=== PATIENT | male | born 1970 | race Hispanic/Latino ===

== ENCOUNTER 2016-12-20 19:10 | Emergency (ER) | payer BC, MEDICAID | END 2016-12-20 21:00 | disposition home or self-care (01) | LOC: C.ER 19:10 | DX: I73.9 Peripheral vascular disease, unspecified (principal) ==

== ENCOUNTER 2017-11-17 15:21 | Emergency (ER) | payer MEDICAID ==
[2017-11-17 15:22] VITALS: BMI 32.6
[2017-11-17 17:53] LABS: URINE BILIRUBIN NEGATIVE (NEGATIVE); URINE CLARITY Clear (Clear); URINE COLOR Straw (YELLOW); URINE GLUCOSE (UA) NORMAL (Normal); URINE LEUKOCYTE ESTERASE NEG Leu/uL (Negative); URINE PROTEIN NEGATIVE (NEGATIVE); URINE UROBILINOGEN NORMAL mg/dL (0.2-1.0)
[2017-11-17 17:55] LABS: URINE BLOOD TRACE (NEGATIVE)
--- NOTE | 2017-11-17 19:20 | US ---
HISTORY: pain TECHNIQUE: Realtime sonography through the scrotum with color and doppler flow. COMPARISON: None Available. FINDINGS: RIGHT TESTICLE: Measures 4.8 x 1 x 2.0 x 2.7 cm. Normal echotexture and flow. RIGHT EPIDIDYMIS: Epididymal head measures 1.4 x 0.7 x 0.9 cm. Grossly unremarkable appearance with normal flow. LEFT TESTICLE: Measures 4.9 x 1.8 x 2.7 cm. Normal echotexture and flow. LEFT EPIDIDYMIS: Epididymal head measures 1.5 x 1.0 x 1.4 cm. Normal color Doppler blood flow. Two tiny epididymal head cysts are identified with a few mm greatest dimension. HYDROCELE: Minimal left hydrocele. None on the right. VARICOCELE: None. OTHER FINDINGS: None. IMPRESSION: No evidence of testicular torsion, cyst or mass. 2 tiny left epididymal head cysts are identified with the bilateral epididymal heads otherwise nonfocal. Normal color blood flow with no definite pattern to suggest epididymitis at this time. Limited left hydrocele.
--- NOTE | 2017-11-17 20:22 | CT ---
EXAM: CT Abdomen and Pelvis Without Intravenous Contrast CLINICAL HISTORY: 47 years old, male; Pain; Abdominal pain; Flank; Lower TECHNIQUE: Axial computed tomography images of the abdomen and pelvis without intravenous contrast. All CT scans at this facility use one or more dose reduction techniques, viz.: automated exposure control; ma/kV adjustment per patient size (including targeted exams where dose is matched to indication; i.e. head); or iterative reconstruction technique. Coronal and sagittal reformatted images were created and reviewed. COMPARISON: No relevant prior studies available. FINDINGS: Limitations: Lack of intravenous contrast. Lung bases: Few subpleural nodules and/or scarring, up to 0.3 cm. Mediastinum: Small hiatal hernia. ABDOMEN: Liver: Unremarkable. Gallbladder and bile ducts: No calcified stones. No ductal dilation. Pancreas: Unremarkable. No ductal dilation. Spleen: No splenomegaly. Adrenals: No mass. Kidneys and ureters: Few small renal calculi. No hydronephrosis. Stomach and bowel: No definite mural thickening. No obstruction. PELVIS: Appendix: Normal caliber. No inflammation. Bladder: Unremarkable. No stones. Reproductive: Unremarkable as visualized. ABDOMEN and PELVIS: Intraperitoneal space: No significant fluid collection. No free air. Bones/joints: Probable bone islands. No acute fracture. Soft tissues: Tiny umbilical hernia containing fat. Vasculature: Minimal atherosclerotic disease of aorta. No aneurysm. Lymph nodes: No pathologically enlarged lymph nodes. IMPRESSION: 1. Nonobstructing renal calculi. 2. Pulmonary nodules. For low-risk patients, no follow-up is necessary. For high-risk patients (smoking history or other known risk factors) an optional CT at 12 months could be performed. 3. Incidental/non-acute findings are described above.
--- NOTE | 2017-11-17 20:27 | C.PDOC ---
History Of Present Illness 47 year old male presents to the ED for evaluation of left-sided abdominal pain that radiates to his testicles since yesterday. Patient states he lifted a heavy bag yesterday, which initiated the pain. Notes the pain worsens with movement. Denies change in sensation. Patient is in pain management for chronic wrist pain and is an IV drug user. Patient denies fever, chills, back pain, nausea, vomiting, penile discharge, hematuria or rash. Time Seen by Provider: 11/17/17 16:26 Chief Complaint (Nursing): Groin Pain History Per: Patient History/Exam Limitations: no limitations Onset/Duration Of Symptoms: Hrs Current Symptoms Are (Timing): Still Present Quality Of Discomfort: "Pain" Associated Symptoms: denies: Fever, Chills, Nausea, Vomiting, Urinary Symptoms Additional History Per: Patient Past Medical History Reviewed: Historical Data, Nursing Documentation, Vital Signs Vital Signs: Last Vital Signs Temp 98.4 F 11/17/17 20:30 Pulse 80 11/17/17 20:30 Resp 18 11/17/17 20:30 BP 134/65 11/17/17 20:30 Pulse Ox 99 11/18/17 22:29 - Medical History PMH: Anxiety, Arthritis, Back Problems, Seizures Surgical History: No Surg Hx Family History: States: Unknown Family Hx - Social History Hx Alcohol Use: Yes Hx Substance Use: Yes - Immunization History Hx Tetanus Toxoid Vaccination: No Hx Influenza Vaccination: Yes Hx Pneumococcal Vaccination: No Review Of Systems Constitutional: Negative for: Fever, Chills Gastrointestinal: Positive for: Abdominal Pain (left-sided ) Genitourinary: Positive for: Other (testicular pain ) Musculoskeletal: Negative for: Back Pain Physical Exam - Physical Exam Appears: Non-toxic, No Acute Distress Skin: Normal Color, Warm, Dry Head: Atraumatic, Normacephalic Eye(s): bilateral: Normal Inspection, EOMI Nose: Normal Oral Mucosa: Moist Neck: Normal ROM, Supple Chest: Symmetrical, No Deformity, No Tenderness Cardiovascular: Rhythm Regular Respiratory: Normal Breath Sounds, No Rales, No Rhonchi, No Wheezing Gastrointestinal/Abdominal: Soft, Tenderness (to left abdominal wall ), No Guarding, No Rebound, No Hernia (no hernia elicited) Back: No CVA Tenderness, No Vertebral Tenderness Male Genital: Testicular Tenderness (left-sided ), Inguinal Tenderness (left- sided ), 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 [facility] Division of Radiology. [address] [place] [id number]. Tel. no. . . . Patient Name: DAISY SEGOVIA . Pt. Address: [address] [place] [address]. Rec #: [id number]. [place] [address]: Eden Goncalves PA-C. Pt Order Location: [facility] : 1970 Male Age: 47 Order #: [id number]. Reason for exam: pain. . . . . . CT Scan. . . ABD PELVIS W/O PO OR IV CONT Exam Date: 11/17/17. . This imaging exam was performed at [facility]. EXAM: CT Abdomen and Pelvis Without Intravenous Contrast. . CLINICAL HISTORY : 47 years old, male; Pain; Abdominal pain; Flank; Lower. . TECHNIQUE: Axial computed tomography images of the abdomen and pelvis without. intravenous contrast. All CT scans at this facility use one or more dose. reduction techniques, viz.: automated exposure control; ma/kV adjustment per. patient size (including targeted exams where dose is matched to indication;. i.e. head); or iterative reconstruction technique. Coronal and sagittal reformatted images were created and reviewed. . COMPARISON: No relevant prior studies available. . FINDINGS: Limitations: Lack of intravenous contrast. Lung bases: Few subpleural nodules and/or scarring, up to 0.3 cm. Mediastinum: Small hiatal hernia. . ABDOMEN: Liver: Unremarkable. Gallbladder and bile ducts: No calcified stones. No ductal dilation. Pancreas : Unremarkable. No ductal dilation. Spleen: No splenomegaly. Adrenals: No mass. Kidneys and ureters: Few small renal calculi. No hydronephrosis. Stomach and bowel: No definite mural thickening. No obstruction. . PELVIS: Appendix: Normal caliber. No inflammation. Bladder: Unremarkable. No stones. Reproductive: Unremarkable as visualized. . ABDOMEN and PELVIS: Intraperitoneal space: No significant fluid collection. No free air. Bones/ joints: Probable bone islands. No acute fracture. Soft tissues: Tiny umbilical hernia containing fat. Vasculature: Minimal atherosclerotic disease of aorta. No aneurysm. Lymph nodes: No pathologically enlarged lymph nodes. . IMPRESSION: 1. Nonobstructing renal calculi. 2. Pulmonary nodules. For low-risk patients, no follow-up is necessary. For. high-risk patients ( smoking history or other known risk factors) an optional CT. at 12 months could be performed. 3. Incidental/non-acute findings are described above. . Dictated By: Jeremy Lozano MD. Dictated Date/Time: 11/17/172021. Signed By: Jeremy Lozano MD. Date Signed: 11/17/172021. Transcribed By: [employer]. Transcribe Date/Time: 11/17/172021. ACYP02/MT US testicular Other Rad Studies (CT/US): Read By Radiologist, Radiology Report Reviewed CT/US Interpretation: HISTORY: pain. TECHNIQUE: Realtime sonography through the scrotum with color and doppler flow. COMPARISON: None Available. FINDINGS : RIGHT TESTICLE: Measures 4.8 x 1 x 2.0 x 2.7 cm. Normal echotexture and flow. RIGHT EPIDIDYMIS: Epididymal head measures 1.4 x 0.7 x 0.9 cm. Grossly unremarkable appearance with normal flow. LEFT TESTICLE: Measures 4.9 x 1.8 x 2.7 cm. Normal echotexture and flow. LEFT EPIDIDYMIS: Epididymal head measures 1.5 x 1.0 x 1.4 cm. Normal color Doppler blood flow. Two tiny epididymal head cysts are identified with a few mm greatest dimension. HYDROCELE: Minimal left hydrocele. None on the right. VARICOCELE: None. OTHER FINDINGS: None. IMPRESSION: No evidence of testicular torsion, cyst or mass. 2 tiny left epididymal head cysts are identified with the bilateral epididymal heads otherwise nonfocal. Normal color blood flow with no definite pattern to suggest epididymitis at this time. Limited left hydrocele. Progress Note: Bloodwork, UA, Testicular US, CT A/P ordered and reviewed. Motrin PO administered. On re-exam, Patient is resting comfortably, and is in no acute distress. Abdomen soft, nontender. Tolerating PO. PT is requesting discharge. Pt was given copies of CT results, results were explained, and instructed repeat evaluation. Patient was instructed to follow up with PMD in 1- 2 days for further evaluation. Disposition - Disposition Disposition: HOME/ ROUTINE Disposition Time: 20:25 Condition: STABLE Additional Instructions: Follow up with your doctor in 1-2 days, show them your CT scan results for further follow up. Return to ER if symptoms persist or worsen. Instructions: Acute Abdomen (Belly Pain), Adult (DC) Forms: [employer] (Czech) - Clinical Impression Clinical Impression: Abdominal pain, Inguinal strain - PA / PHARMACIST CRITICAL CARE / Resident Statement MD/DO has reviewed & agrees with the documentation as recorded. - Scribe Statement The provider has reviewed the documentation as recorded by the Scribe (Brooke Dickens) All medical record entries made by the Scribe were at my direction and personally dictated by me. I have reviewed the chart and agree that the record accurately reflects my personal performance of the history, physical exam, medical decision making, and the department course for this patient. I have also personally directed, reviewed, and agree with the discharge instructions and disposition.
[2017-11-17 20:31] VITALS: BP 134/65; PULSE 80; RESP 18; TEMP 98.4
[2017-11-17 22:17] VITALS: O2SAT 99
== END 2017-11-17 20:36 | disposition home or self-care (01) ==
LOC: C.ER 15:21
DX: S39.011A Strain of muscle, fascia and tendon of abdomen, initial encounter (principal); X50.0XXA Overexertion from strenuous movement or load, initial encounter; Y92.9 Unspecified place or not applicable; R10.9 Unspecified abdominal pain

== ENCOUNTER 2017-12-17 13:55 | Emergency (ER) | payer MEDICAID ==
[2017-12-17 13:55] VITALS: BMI 32.6
[2017-12-17 14:31] VITALS: BP 128/83; PULSE 87; RESP 10; TEMP 99.3; O2SAT 97
[2017-12-17] MEDS ORDERED: Lidocaine Hydrochloride 5 ML INJ ONE (16:41)
[2017-12-17] MEDS ORDERED: Lidocaine Hydrochloride 10 ML INJ ONE (16:55)
== END 2017-12-17 14:49 | disposition left against medical advice (07) ==
LOC: C.ER 13:55
DX: Z02.89 Encounter for other administrative examinations (principal); L02.91 Cutaneous abscess, unspecified

== ENCOUNTER 2017-12-17 15:18 | Emergency (ER) | payer MEDICAID ==
[2017-12-17 15:19] VITALS: BMI 32.6
[2017-12-17 15:40] VITALS: BP 133/74; PULSE 92; RESP 20; TEMP 98.5; O2SAT 94
[2017-12-17] MEDS ORDERED: Lidocaine 1% Inj (20ml) INFIL ONE (16:32)
[2017-12-17] MEDS ORDERED: Lidocaine Hydrochloride 5 ML INJ ONE (16:56)
--- NOTE | 2017-12-17 19:42 | C.PDOC ---
History Of Present Illness 47 year old male presents to the ED for evaluation of an abscess to his left forearm region. Patient admits to history of IV heroin abuse. Patient notes the area has been decreasing in size. He denies fever, chills, suicidal/homicidal ideation. Chief Complaint (Nursing): Abnormal Skin Integrity History Per: Patient History/Exam Limitations: no limitations Onset/Duration Of Symptoms: Days Current Symptoms Are (Timing): Still Present Location Of Injury: Left: Forearm Additional History Per: Patient Past Medical History Reviewed: Historical Data, Nursing Documentation, Vital Signs Vital Signs: Last Vital Signs Temp 98.5 F 12/17/17 15:38 Pulse 92 H 12/17/17 15:38 Resp 20 12/17/17 15:38 BP 133/74 12/17/17 15:38 Pulse Ox 94 L 12/17/17 20:15 - Medical History PMH: Anxiety, Arthritis, Back Problems, Seizures Surgical History: No Surg Hx Family History: States: Unknown Family Hx - Social History Hx Alcohol Use: Yes Hx Substance Use: Yes - Immunization History Hx Tetanus Toxoid Vaccination: No Hx Influenza Vaccination: Yes Hx Pneumococcal Vaccination: No Review Of Systems Constitutional: Negative for: Fever, Chills Psych: Positive for: Other (abscess to left forearm ) Physical Exam - Physical Exam Appears: Non-toxic, No Acute Distress Skin: Normal Color, Warm, Dry Head: Atraumatic, Normacephalic Eye(s): bilateral: Normal Inspection Oral Mucosa: Moist Neck: Supple Chest: Symmetrical, No Deformity, No Tenderness Cardiovascular: Rhythm Regular, No Murmur Respiratory: Normal Breath Sounds, No Rales, No Rhonchi, No Wheezing Extremity: Normal ROM, Capillary Refill (less than 2 seconds ), Other (slight fluctuance and 1cm diameter abscess to left antecubital area) Pulses: Left Radial: Normal, Right Radial: Normal Neurological/Psych: Oriented x3, Normal Speech, Normal Cognition ED Course And Treatment O2 Sat by Pulse Oximetry: 94 - Incision & Drainage Of Abscess Anesthesia: Lidocaine 1% Prep Used: Sterile Water, Betadine Procedure: Incised W/Scalpel Blade#: (11) Medical Decision Making Medical Decision Making: Impression: 47 year old male with abscess to left forearm Progress: Attempted incision and drainage of abscess. Unable to express purulent discharge. Wound was bandaged with dry, sterile dressing. Patient is resting comfortably, showing no signs of distress, remains afebrile and is stable for discharge. Patient is advised to follow up with clinic within 1-2 days for further evaluation and/or return to the ED if symptoms persist or worsen. Disposition - Disposition Referrals: [facility] [Outside] [facility] [Outside] Disposition: HOME/ ROUTINE Disposition Time: 17:15 Condition: GOOD Additional Instructions: DAISY SEGOVIA, thank you for letting us take care of you today. Your provider was Reed Hansen DO. The emergency medical care you received today was directed at your acute symptoms. If you were prescribed any medication, please fill it and take as directed. It may take several days for your symptoms to resolve. Return to the Emergency Department if your symptoms worsen, do not improve, or if you have any other problems. Please contact your doctor or call one of the physicians/clinics you have been referred to that are listed on the Patient Visit Information form that is included in your discharge packet. Bring any paperwork you were given at discharge with you along with any medications you are taking to your follow up visit. Our treatment cannot replace ongoing medical care by a primary care provider outside of the emergency department. Thank you for allowing the [facility] team to be part of your care today. Follow up with the clinic in 2-3 days for re-evaluation and further management. Prescriptions: Cephalexin [cephalexin] 500 mg PO Q8 #15 cap Sulfamethoxazole/Trimethoprim [Bactrim DS 800 mg-160 mg] 1 tab PO BID #10 tab Instructions: Drug Abuse and Drug Addiction (DC) Forms: [employer] (Turkmen) - Clinical Impression Clinical Impression: Abscess, Opioid abuse - Scribe Statement The provider has reviewed the documentation as recorded by the Scribe (Brooke Dickens) Provider Attestation: All medical record entries made by the Scribe were at my direction and personally dictated by me. I have reviewed the chart and agree that the record accurately reflects my personal performance of the history, physical exam, medical decision making, and the department course for this patient. I have also personally directed, reviewed, and agree with the discharge instructions and disposition.
== END 2017-12-17 17:41 | disposition home or self-care (01) ==
LOC: C.ER 15:18
DX: L02.414 Cutaneous abscess of left upper limb (principal)

== ENCOUNTER 2018-01-05 18:05 | Emergency (ER) | payer MEDICAID ==
[2018-01-05 18:05] VITALS: BMI 32.6
[2018-01-05] MEDS ORDERED: cefTRIAXone IV 1 gm in Dextros 50 ML IVPB ONE (20:04)
[2018-01-05] MEDS ORDERED: Potassium Chloride 20 mEq/15 ml LIQ UD ONE (20:21)
[2018-01-05] MEDS ORDERED: Enoxaparin 40 mg Syringe ONE (21:22)
[2018-01-06] MEDS ORDERED: Iodixanol 320 MG/ML 100 ML BOTTLE IV ONE (00:54)
== END 2018-01-05 18:19 | disposition left against medical advice (07) ==
LOC: C.ER 18:05
DX: Z02.89 Encounter for other administrative examinations (principal); L02.91 Cutaneous abscess, unspecified

== ENCOUNTER 2018-01-05 18:33 | Inpatient (IN) | payer MEDICAID ==
[2018-01-05 18:33] VITALS: BMI 32.6
[2018-01-05] MEDS ORDERED: cefTRIAXone IV 1 gm in Dextros 50 ML IVPB ONE (19:09)
--- NOTE | 2018-01-05 19:09 | C.PDOC ---
History Of Present Illness 47 year old male presents to the ER with a complaint of redness and swelling to the right upper arm. Patient has a Hx of IVDA and notes he injected to the site 2 days ago. Denies fever or chills. Chief Complaint (Nursing): Abnormal Skin Integrity History Per: Patient History/Exam Limitations: no limitations Current Symptoms Are (Timing): Still Present Location Of Injury: Right: Arm, Anterior: Arm Quality Of Symptoms: Painful, Swollen Recent travel outside of the [place]: No Past Medical History Reviewed: Historical Data, Nursing Documentation, Vital Signs Vital Signs: Last Vital Signs Temp 98.1 F 01/05/18 18:51 Pulse 112 H 01/05/18 18:51 Resp 20 01/05/18 18:51 BP 124/87 01/05/18 18:51 Pulse Ox 92 L 01/05/18 19:20 - Medical History PMH: Anxiety, Arthritis, Back Problems, Seizures Family History: States: Unknown Family Hx - Social History Hx Alcohol Use: Yes Hx Substance Use: Yes - Immunization History Hx Tetanus Toxoid Vaccination: No Hx Influenza Vaccination: Yes Hx Pneumococcal Vaccination: No Review Of Systems Constitutional: Negative for: Fever, Chills Cardiovascular: Negative for: Chest Pain, Palpitations Respiratory: Negative for: Cough, Shortness of Breath Musculoskeletal: Positive for: Arm Pain Skin: Positive for: Other (Redness and swelling) Neurological: Negative for: Weakness, Numbness Physical Exam - Physical Exam Appears: Non-toxic, Other (Mild distress) Skin: Warm, Dry Head: Atraumatic, Normacephalic Eye(s): bilateral: Normal Inspection Oral Mucosa: Moist Neck: Normal, Supple Chest: Symmetrical, No Tenderness Cardiovascular: Rhythm Regular Respiratory: Normal Breath Sounds, No Rales, No Rhonchi, No Wheezing Gastrointestinal/Abdominal: Soft, No Tenderness Extremity: Capillary Refill (<2 seconds), Other ([id number] area of redness and congestion to dorsal aspect of right upper arm, tender, hard to touch, nonfluctuant) Pulses: Left Radial: Normal, Right Radial: Normal Neurological/Psych: Oriented x3, Normal Speech, Normal Motor, Normal Sensation ED Course And Treatment - Laboratory Results Result Diagrams: 01/05/18 19:52 01/05/18 19:52 O2 Sat by Pulse Oximetry: 92 (Room air) Progress Note: CT right upper extremity, blood work, urinalysis, and rocephin administered. Disposition Discussed With Dr.: Angel Villeda Doctor Will See Patient In The: Hospital Counseled Patient/Family Regarding: Diagnosis - Disposition Disposition: HOSPITALIZED Disposition Time: 22:07 Condition: STABLE Forms: [employer] (Sami) - POA Present On Arrival: None - Clinical Impression Clinical Impression: Cellulitis of arm, right, Thrombophlebitis arm - Scribe Statement The provider has reviewed the documentation as recorded by the Scribjanneth Castro All medical record entries made by the Gradyibjanneth were at my direction and personally dictated by me. I have reviewed the chart and agree that the record accurately reflects my personal performance of the history, physical exam, medical decision making, and the department course for this patient. I have also personally directed, reviewed, and agree with the discharge instructions and disposition.
--- NOTE | 2018-01-05 19:10 | C.PDOC ---
Chief Complaint (Nursing): Abnormal Skin Integrity Past Medical History Vital Signs: Last Vital Signs Temp 98.1 F 01/05/18 18:51 Pulse 112 H 01/05/18 18:51 Resp 20 01/05/18 18:51 BP 124/87 01/05/18 18:51 Pulse Ox 92 L 01/05/18 18:51 - Medical History PMH: Anxiety, Arthritis, Back Problems, Seizures Family History: States: Unknown Family Hx - Social History Hx Alcohol Use: Yes Hx Substance Use: Yes - Immunization History Hx Tetanus Toxoid Vaccination: No Hx Influenza Vaccination: Yes Hx Pneumococcal Vaccination: No ED Course And Treatment O2 Sat by Pulse Oximetry: 92 Disposition - Disposition
[2018-01-05 19:58] LABS: BASO % 0.3 % (0.0-2.0); EOS % 0.2 % (0.0-4.0); HEMOGLOBIN 15.3 g/dL (12.0-18.0); LYMPH # 1.2 K/uL (1.0-4.3); LYMPH % 12.3 % (20.0-40.0); MEAN CORPUSCULAR HEMOGLOBIN 31.8 pg (27.0-31.0); MEAN CORPUSCULAR HGB CONC 34.6 g/dL (33.0-37.0); MEAN PLATELET VOLUME 7.4 fL (7.2-11.7); MONO # 1.1 K/uL (0.0-0.8); MONO % 11.4 % (0.0-10.0); NEUT # 7.5 K/uL (1.8-7.0); NEUT % 75.8 % (50.0-75.0); NRBC % 0.8 % (0.0-2.0); RBC 4.82 Mil/uL (4.40-5.90); RED CELL DISTRIBUTION WIDTH 13.6 % (11.5-14.5)
[2018-01-05 19:59] LABS: WHITE BLOOD COUNT 9.9 K/uL (4.8-10.8)
[2018-01-05 20:09] LABS: ALBUMIN 4.4 g/dL (3.5-5.0); ALT/SGPT 25 U/L (21-72); AST/SGOT 30 U/L (17-59); BLOOD UREA NITROGEN 21 mg/dL (9-20); CALCIUM 9.5 mg/dl (8.6-10.4); GFR AFRICAN-AMERICAN > 60; GFR NON-AFRICAN AMERICAN > 60
[2018-01-05] MEDS ORDERED: Potassium Chloride 20 mEq/15 ml LIQ UD PO STA (20:11)
[2018-01-05 20:59] LABS: SQUAMOUS EPITHIAL < 1 /hpf (0-5); URINE BILIRUBIN NEGATIVE (NEGATIVE); URINE BLOOD NEGATIVE (NEGATIVE); URINE CLARITY Hazy (Clear); URINE COLOR Amber (YELLOW); URINE GLUCOSE (UA) NORMAL (Normal); URINE LEUKOCYTE ESTERASE NEG Leu/uL (Negative); URINE PROTEIN 1+ mg/dL (NEGATIVE)
[2018-01-05 21:06] LABS: BARBITURATES, UR NEGATIVE (NEGATIVE); PHENCYCLIDINE, UR NEGATIVE (NEGATIVE)
[2018-01-05 21:15] LABS: BENZODIAZEPINES, UR POSITIVE (NEGATIVE); OPIATES, UR POSITIVE (NEGATIVE)
[2018-01-05] MEDS ORDERED: Enoxaparin 40 mg Syringe SC STA (21:18)
[2018-01-05 21:33] LABS: INR 1.2; PROTHROMBIN TIME 13.6 SECONDS (9.7-12.2)
--- NOTE | 2018-01-05 22:15 | CP.PCM.HP ---
<Ivonne Diaz - Last Filed: 01/06/18 02:57> History of Present Illness - History of Present Illness History of Present Illness: Medicine Note for Hospitalist Service CC: right arm pain HPI: This is a 47 year old male with PMHx of IVDA, Tobacco Use Disorder, and Alcohol Use Disorder who presents to the ED with right arm pain x 2 days. Patient is an active, chronic IV heroine user (~18 years), last use was 2 days ago in his right arm, medial aspect of bicep. Patient realized shortly after the area around the injection site became red, warm, painful to touch. He describes the pain is sharp in nature and constant. He denied taking anything for the pain. Reports not moving the right arm, makes the pain less. He was recently seen in the ED 12/17/17 for left arm abscess for which he was discharged with bactrim and cephalexin. He reports he usually shoots up in either arm, using clean needles. Admits to subjective fevers, cough, and shortness of breath; denied chills, chest pain, abdominal pain, n/v/d/c, or urinary symptoms. PMHx: IVDA, Tobacco Use Disorder, and Alcohol Use Disorder PSHx: Right hand and right knee surgery Meds: Oxycontin and Xanax All: As listed in MAR SHx: 5-6 cigarrettes / day x 20 years, drinks eight, 24 oz beers daily, IV heroine 2-3 bags for the past 18 years. work as an iron work, living in . FHx: Father at age of 50 of [place] PMD: None Present on Admission - Present on Admission Any Indicators Present on Admission: No Past Patient History - Infectious Disease Hx of Infectious Diseases: None - Past Social History Smoking Status: Light Smoker < 10 Cigarettes Daily - NEUROLOGICAL Hx Seizures: Yes - HEMATOLOGICAL/ONCOLOGICAL Hx Hepatitis C: Yes - MUSCULOSKELETAL/RHEUMATOLOGICAL Hx Arthritis: Yes - PSYCHIATRIC Hx Anxiety: Yes Hx Substance Use: Yes - SURGICAL HISTORY Hx Surgeries: Yes Hx Amputation: Yes (right hand, reattached) - ANESTHESIA Hx Anesthesia: Yes Hx Anesthesia Reactions: No Hx Malignant Hyperthermia: No Meds Allergies/Adverse Reactions: Allergies Allergy/AdvReac Type Severity Reaction Status Date / Time carbamazepine [From Tegretol] Allergy RASH Verified 12/17/17 15:40 phenytoin sodium Allergy RASH Verified 12/17/17 15:40 [From Dilantin] phenytoin sodium extended Allergy RASH Verified 12/17/17 15:40 [From Dilantin] Physical Exam - Constitutional Appears: No Acute Distress - Head Exam Head Exam: NORMAL INSPECTION, NORMOCEPHALIC - Eye Exam Eye Exam: EOMI, Normal appearance, PERRL. absent: Nystagmus, Scleral icterus Pupil Exam: NORMAL ACCOMODATION - ENT Exam ENT Exam: Mucous Membranes Dry - Respiratory Exam Respiratory Exam: Decreased Breath Sounds, Wheezes (faint) - Cardiovascular Exam Cardiovascular Exam: Tachycardia. absent: Diastolic murmur, Systolic Murmur - GI/Abdominal Exam GI & Abdominal Exam: Normal Bowel Sounds, Soft. absent: Distended, Organomegaly , Tenderness - Extremities Exam Extremities exam: Positive for: normal inspection, pedal pulses present. Negative for: pedal edema, tenderness Additional comments: no track evans noted on bilateral lower extremities. Multiple scars noted on upper extremities, track evans noted bilaterally Right upper extremity, cellulitis noted medial aspect of bicep, no fluctuance noted - Back Exam Back exam: NORMAL INSPECTION - Neurological Exam Neurological exam: Alert, CN II-XII Intact, Oriented x3 - Psychiatric Exam Psychiatric exam: Normal Affect, Normal Mood - Skin Skin Exam: Dry, Intact, Normal Color, Warm Results - Vital Signs Recent Vital Signs: Last Vital Signs Temp 98.1 F 01/05/18 18:51 Pulse 112 H 01/05/18 18:51 Resp 20 01/05/18 18:51 BP 124/87 01/05/18 18:51 Pulse Ox 92 L 01/05/18 22:09 - Labs Result Diagrams: 01/05/18 19:52 01/05/18 19:52 Labs: Laboratory Results - last 24 hr 01/05/18 01/05/18 01/05/18 19:52 19:52 19:58 WBC 9.9 D RBC 4.82 Hgb 15.3 Hct 44.3 MCV 92.0 MCH 31.8 H MCHC 34.6 RDW 13.6 Plt Count 207 MPV 7.4 Neut % (Auto) 75.8 H Lymph % (Auto) 12.3 L Parke % (Auto) 11.4 H Eos % (Auto) 0.2 Baso % (Auto) 0.3 Neut # (Auto) 7.5 H Lymph # (Auto) 1.2 Parke # (Auto) 1.1 H Eos # (Auto) 0.0 Baso # (Auto) 0.0 PT INR APTT D-Dimer, Quantitative Sodium 141 Potassium 3.3 L Chloride 97 L Carbon Dioxide 25 Anion Gap 22 H BUN 21 H Creatinine 1.0 Est GFR ( Amer) > 60 Est GFR (Non-Af Amer) > 60 Random Glucose 139 H Calcium 9.5 Total Bilirubin 0.7 AST 30 ALT 25 Alkaline Phosphatase 108 Total Protein 8.8 H Albumin 4.4 Globulin 4.4 H Albumin/Globulin Ratio 1.0 Urine Color Urine Clarity Urine pH Ur Specific [place] Urine Protein Urine Glucose (UA) Urine Ketones Urine Blood Urine Nitrate Urine Bilirubin Urine Urobilinogen Ur Leukocyte Esterase Urine WBC (Auto) Urine RBC (Auto) Ur Squamous Epith Cells Hyaline Casts Urine Opiates Screen Urine Methadone Screen Ur Barbiturates Screen Phenytoin < 3.0 L Ur Phencyclidine Scrn Ur Amphetamines Screen U Benzodiazepines Scrn U Oth Cocaine Metabols U Cannabinoids Screen Alcohol, Quantitative 16 H 01/05/18 01/05/18 01/05/18 20:47 20:47 21:19 WBC RBC Hgb Hct MCV MCH MCHC RDW Plt Count MPV Neut % (Auto) Lymph % (Auto) [place] % (Auto) Eos % (Auto) Baso % (Auto) Neut # (Auto) Lymph # (Auto) [place]ke # (Auto) Eos # (Auto) Baso # (Auto) PT 13.6 H INR 1.2 APTT 34 D-Dimer, Quantitative 1017 H Sodium Potassium Chloride Carbon Dioxide Anion Gap BUN Creatinine Est GFR ( Amer) Est GFR (Non-Af Amer) Random Glucose Calcium Total Bilirubin AST ALT Alkaline Phosphatase Total Protein Albumin Globulin Albumin/Globulin Ratio Urine Color [place]iana Urine Clarity Hazy Urine pH 5.0 Ur Specific [place] 1.030 Urine Protein 1+ H Urine Glucose (UA) Normal Urine Ketones Negative Urine Blood Negative Urine Nitrate Negative Urine Bilirubin Negative Urine Urobilinogen 4.0 Ur Leukocyte Esterase Neg Urine WBC (Auto) 3 Urine RBC (Auto) 4 H Ur Squamous Epith Cells < 1 Hyaline Casts 6-10 H Urine Opiates Screen Positive H Urine Methadone Screen Positive H Ur Barbiturates Screen Negative Phenytoin Ur Phencyclidine Scrn Negative Ur Amphetamines Screen Positive H U Benzodiazepines Scrn Positive U Oth Cocaine Metabols Positive H U Cannabinoids Screen Negative Alcohol, Quantitative Assessment & Plan - Assessment and Plan (Free Text) Plan: Cellulitis - Localized to medial aspect of Right UE - Not actively draining, no wound culture to be obtained - Afebrile, no leukocytosis, left shift noted - Possible I&D? pending CT read - IVF, vanco, zosyn started 01/06/18, f/u vanco trough - Upper Extremity CT ordered Tachycardia - Admitted to shortness of breath - EKG - Sinus Tachycardia @ low 100s - D- Dimer elevated - CTA ordered Hx IVDA - Cessation encouraged - Monitor for withdrawal symptoms, treat conservatively Tobacco Use Disorder COPD - Cessation encouraged - Duonebs PRN, nicotine patch Alcohol Use Disorder - Cessation encouraged - Aspiration, Seizure, CIWA protocol - Ativan PRN, Mv, Thiamine, and folic acid daily Prophylactic Measures - GI PPX: PPX, Florastor - DVT PPX: SCDs, Hep Q8H DW Dr. Villeda, Ivonne Diaz DO, PGY-2 <Angel Villeda - Last Filed: 01/06/18 06:09> Results - Vital Signs Recent Vital Signs: Last Vital Signs Temp 98.2 F 01/05/18 23:39 Pulse 100 H 01/05/18 23:39 Resp 20 01/05/18 23:39 BP 125/75 01/05/18 23:39 Pulse Ox 95 01/05/18 23:39 - Labs Result Diagrams: 01/05/18 19:52 01/05/18 19:52 Labs: Laboratory Results - last 24 hr 01/05/18 01/05/18 01/05/18 19:52 19:52 19:58 WBC 9.9 D RBC 4.82 Hgb 15.3 Hct 44.3 MCV 92.0 MCH 31.8 H MCHC 34.6 RDW 13.6 Plt Count 207 MPV 7.4 Neut % (Auto) 75.8 H Lymph % (Auto) 12.3 L [place]ke % (Auto) 11.4 H Eos % (Auto) 0.2 Baso % (Auto) 0.3 Neut # (Auto) 7.5 H Lymph # (Auto) 1.2 [place]ke # (Auto) 1.1 H Eos # (Auto) 0.0 Baso # (Auto) 0.0 PT INR APTT D-Dimer, Quantitative Sodium 141 Potassium 3.3 L Chloride 97 L Carbon Dioxide 25 Anion Gap 22 H BUN 21 H Creatinine 1.0 Est GFR ( Amer) > 60 Est GFR (Non-Af Amer) > 60 Random Glucose 139 H Calcium 9.5 Total Bilirubin 0.7 AST 30 ALT 25 Alkaline Phosphatase 108 Total Protein 8.8 H Albumin 4.4 Globulin 4.4 H Albumin/Globulin Ratio 1.0 Urine Color Urine Clarity Urine pH Ur Specific [place] Urine Protein Urine Glucose (UA) Urine Ketones Urine Blood Urine Nitrate Urine Bilirubin Urine Urobilinogen Ur Leukocyte Esterase Urine WBC (Auto) Urine RBC (Auto) Ur Squamous Epith Cells Hyaline Casts Urine Opiates Screen Urine Methadone Screen Ur Barbiturates Screen Phenytoin < 3.0 L Ur Phencyclidine Scrn Ur Amphetamines Screen U Benzodiazepines Scrn U Oth Cocaine Metabols U Cannabinoids Screen Alcohol, Quantitative 16 H 01/05/18 01/05/18 01/05/18 20:47 20:47 21:19 WBC RBC Hgb Hct MCV MCH MCHC RDW Plt Count MPV Neut % (Auto) Lymph % (Auto) [place] % (Auto) Eos % (Auto) Baso % (Auto) Neut # (Auto) Lymph # (Auto) [place] # (Auto) Eos # (Auto) Baso # (Auto) PT 13.6 H INR 1.2 APTT 34 D-Dimer, Quantitative 1017 H Sodium Potassium Chloride Carbon Dioxide Anion Gap BUN Creatinine Est GFR ( Amer) Est GFR (Non-Af Amer) Random Glucose Calcium Total Bilirubin AST ALT Alkaline Phosphatase Total Protein Albumin Globulin Albumin/Globulin Ratio Urine Color [place]iana Urine Clarity Hazy Urine pH 5.0 Ur Specific [place] 1.030 Urine Protein 1+ H Urine Glucose (UA) Normal Urine Ketones Negative Urine Blood Negative Urine Nitrate Negative Urine Bilirubin Negative Urine Urobilinogen 4.0 Ur Leukocyte Esterase Neg Urine WBC (Auto) 3 Urine RBC (Auto) 4 H Ur Squamous Epith Cells < 1 Hyaline Casts 6-10 H Urine Opiates Screen Positive H Urine Methadone Screen Positive H Ur Barbiturates Screen Negative Phenytoin Ur Phencyclidine Scrn Negative Ur Amphetamines Screen Positive H U Benzodiazepines Scrn Positive U Oth Cocaine Metabols Positive H U Cannabinoids Screen Negative Alcohol, Quantitative Assessment & Plan - Date & Time Date: 01/06/18 (I have seen and examined the patient. I agree with the findings and plan of care as documented by Dr. Diaz. Patient with right upper extremity cellulitis. Possible abscess. Consult surgery if I&D necessary. Kareno and Monika for now. Likely secondary to IVDA. Monitor for signs and symptoms of withdrawal. Tachycardia and some SOB. Check CTA. Monitor for acute changes.) Time: 06:08 Attending/Attestation - Attestation I have personally seen and examined this patient.: Yes I have fully participated in the care of the patient.: Yes I have reviewed all pertinent clinical information: Yes
[2018-01-05] MEDS ORDERED: Sodium Chloride 0.9% 1,000 ML IV ONE (23:37)
[2018-01-06 00:23] VITALS: RESP 20
[2018-01-06] MEDS: Sodium Chloride 0.9% 1,000 ML IV SCH ×3 (01:05→12:43)
[2018-01-06] MEDS: Piperacill/Tazo 3.375gm in Dex 3.375 GM/50 ML BAG IVPB SCH ×3 (03:53→16:03)
[2018-01-06] MEDS: Albuterol-Ipratrop 3 mg / 0.5 (3 ml) UD INH SCH ×2 (07:45→13:16)
[2018-01-06 08:22] LABS: BASO % 0.5 % (0.0-2.0); EOS # 0.1 K/uL (0.0-0.7); HEMOGLOBIN 13.4 g/dL (12.0-18.0); LYMPH # 1.4 K/uL (1.0-4.3); LYMPH % 19.8 % (20.0-40.0); MEAN CELL VOLUME 93.3 fL (80.0-94.0); MEAN CORPUSCULAR HEMOGLOBIN 32.3 pg (27.0-31.0); MEAN CORPUSCULAR HGB CONC 34.6 g/dL (33.0-37.0); MEAN PLATELET VOLUME 7.9 fL (7.2-11.7); MONO % 14.3 % (0.0-10.0); NEUT # 4.6 K/uL (1.8-7.0); NEUT % 64.4 % (50.0-75.0); NRBC % 0.2 % (0.0-2.0); RBC 4.14 Mil/uL (4.40-5.90); RED CELL DISTRIBUTION WIDTH 13.5 % (11.5-14.5); WHITE BLOOD COUNT 7.2 K/uL (4.8-10.8)
[2018-01-06] MEDS: Saccharomyces Boulardi 250 mg Cap PO SCH ×3 (08:35→17:08)
[2018-01-06 08:45] LABS: ALB/GLOB RATIO 1.1 (1.0-2.1); ALBUMIN 3.9 g/dL (3.5-5.0); ALT/SGPT 25 U/L (21-72); AST/SGOT 27 U/L (17-59); BLOOD UREA NITROGEN 20 mg/dL (9-20); CALCIUM 8.6 mg/dl (8.6-10.4); GFR AFRICAN-AMERICAN > 60; GFR NON-AFRICAN AMERICAN > 60
--- NOTE | 2018-01-06 09:15 | CP.PCM.PN ---
Subjective - Date & Time of Evaluation Date of Evaluation: 01/06/18 Time of Evaluation: 09:14 Objective - Vital Signs/Intake and Output Vital Signs (last 24 hours): Temp Pulse Resp BP Pulse Ox 97.5 F L 71 20 111/76 97 01/06/18 07:54 01/06/18 07:54 01/06/18 07:54 01/06/18 07:54 01/06/18 07:54 - Medications Medications: Current Medications Acetaminophen (Tylenol 325mg Tab) 650 mg PO Q6 PRN PRN Reason: Pain, Mild (1-3) Last Admin: 01/06/18 08:38 Dose: 650 mg Albuterol/Ipratropium (Duoneb 3 Mg/0.5 Mg (3 Ml) Ud) 3 ml INH RQ6 [facility] Last Admin: 01/06/18 07:45 Dose: Not Given Folic Acid (Folic Acid) 1 mg PO DAILY [facility] Heparin Sodium (Porcine) (Heparin) 5,000 units SC Q8 [facility] Last Admin: 01/06/18 05:35 Dose: 5,000 units Piperacillin Sod/Tazobactam Sod (Zosyn 3.375 Gm Iv Premix) 3.375 gm in 50 mls @ 100 mls/hr IVPB Q6H [facility] PRN Reason: Protocol Last Admin: 01/06/18 03:53 Dose: 100 mls/hr Vancomycin/Sodium Chloride (Vancomycin 1 Gm/Ns 200 Ml) 1 gm in 200 mls @ 133 mls/hr IVPB DAILY [facility] PRN Reason: Protocol Stop: 01/11/18 10:01 Sodium Chloride (Sodium Chloride 0.9%) 1,000 mls @ 100 mls/hr IV .Q10H [facility] Last Admin: 01/06/18 01:05 Dose: 100 mls/hr Lorazepam (Ativan) 1 mg IVP Q6H PRN PRN Reason: Anxiety Multivitamins (Hexavitamin) 1 tab PO DAILY [facility] Nicotine (Nicoderm Cq) 1 patch TD DAILY [facility] Pantoprazole Sodium (Protonix Ec Tab) 40 mg PO DAILY [facility] Saccharomyces Boulardii (Florastor) 250 mg PO BID [facility] Last Admin: 01/06/18 08:35 Dose: 250 mg Thiamine HCl (Vitamin B1 Tab) 100 mg PO DAILY [facility] - Labs Labs: 01/06/18 08:11 01/06/18 08:11 PT 13.6 SECONDS (9.7-12.2) H 01/05/18 21:19 INR 1.2 01/05/18 21:19 APTT 34 SECONDS (21-34) 01/05/18 21:19 Assessment and Plan - Assessment and Plan (Free Text) Plan: 47 yo M admitted for cellulitis Cellulitis - Localized to medial aspect of Right UE - Not actively draining, no wound culture to be obtained - Afebrile, no leukocytosis, left shift noted - Possible I&D? pending CT read - IVF, vanco, zosyn started 01/06/18, f/u vanco trough - Upper Extremity CT ordered Tachycardia - Admitted to shortness of breath - EKG - Sinus Tachycardia @ low 100s - D- Dimer elevated - CTA ordered Hx IVDA - Cessation encouraged - Monitor for withdrawal symptoms, treat conservatively Tobacco Use Disorder COPD - Cessation encouraged - Duonebs PRN, nicotine patch Alcohol Use Disorder - Cessation encouraged - Aspiration, Seizure, CIWA protocol - Ativan PRN, Mv, Thiamine, and folic acid daily Prophylactic Measures - GI PPX: PPX, Florastor - DVT PPX: SCDs, Hep Q8H
--- NOTE | 2018-01-06 09:48 | CT ---
Date of service: 01/05/2018 PROCEDURE: CT right upper extremity HISTORY: cellulitis/ abscess/ IVDA COMPARISON: Not available TECHNIQUE: 2.5 mm contiguous axial sections were acquired through the right upper extremity from the shoulder through the elbow. Sagittal and coronal images were reformatted from the axial scan. FINDINGS: There is infiltration of the subcutaneous soft tissues in the region just proximal to the antecubital fossa, about the cephalic vein. This may represent a thrombophlebitis. There is no defined fluid collection. This may reflect some phlegmonous change. There is mild cutaneous thickening overlying the region of concern. There is edema about the flexor muscles, predominantly biceps. There is no evidence of an intramuscular abscess or mass. There is no underlying osseous erosion or periosteal reaction appreciated. IMPRESSION: No evidence of abscess. Possible thrombophlebitis. Likely cellulitis. The preliminary findings for this examination were reported by [facility] at 8:33 p.m. on 01/05/2018. There is concurrence of this report with the preliminary findings.
[2018-01-06] MEDS ORDERED: Multiple Vitamins Tab PO SCH (10:00)
[2018-01-06] MEDS ORDERED: Pantoprazole 40 mg EC Tab PO SCH (10:00)
[2018-01-06] MEDS ORDERED: Vancomycin 1 gm/NS 200 ml 1 GM/200 ML BAG IVPB SCH (10:00)
--- NOTE | 2018-01-06 10:48 | CT ---
Date of service: 01/06/2018 PROCEDURE: CT Chest with contrast (Pulmonary Angiogram) HISTORY: dyspnea, tachycardia, elevated D-dimer COMPARISON: Correlation made with CT scan abdomen pelvis 11/17/2017 which imaged both lung bases. . TECHNIQUE: Axial computed tomography images were obtained of the chest in the pulmonary arterial phase of enhancement. Coronal and sagittal reformatted images were created and reviewed. Intravenous contrast dose: 100 cc Visipaque 320 Radiation dose: Total exam DLP = mGy-cm. This CT exam was performed using one or more of the following dose reduction techniques: Automated exposure control, adjustment of the mA and/or kV according to patient size, and/or use of iterative reconstruction technique. FINDINGS: PULMONARY ARTERIES: Limited study due to suboptimal opacification of the pulmonary arteries. The visualized pulmonary trunk, right and left main, lobar, segmental, and proximal subsegmental branches of the pulmonary arteries appear patent so far as can be seen. AORTA: No acute findings. No thoracic aortic aneurysm. LUNGS: Mild passive/dependent type atelectasis seen in both posterior lower lung doshi. Otherwise lung doshi are clear without focal consolidation or effusion. There is a small approximately 4.6 mm nodule in the right middle lobe unchanged from prior exam. . Follow-up study in 6 months could be performed to assess stability. PLEURAL SPACES: Unremarkable. No effusion or pneumothorax. HEART: Unremarkable. No cardiomegaly. No significant pericardial effusion. LYMPH NODES: Several small nonspecific mediastinal lymph nodes are present. Few small bilateral hilar lymph nodes are present the largest on the right side measuring approximately 12 point 3 minimal measures long axis. There is a small hiatal hernia with wall thickening of the distal esophagus likely due to protrusion of gastric mucosa however the possibility of esophagitis not excluded. BONES, CHEST WALL: Mild multilevel degenerative spondylosis of the thoracic spine. There are no acute compression fractures nor retropulsed fragments. OTHER FINDINGS: Spleen appears mildly enlarged measuring over 13 cm in AP dimension. IMPRESSION: Limited study due to suboptimal opacification of the pulmonary arteries. No evidence of central pulmonary embolus so far as can be seen. Mild passive atelectasis both posterior lower lung doshi. Small 4.6 mm nodule again noted middle lobe. Follow-up CT scan 6 months could be performed to assess stability. Small hiatal hernia with wall thickening of the distal esophagus likely due to protrusion gastric mucosa. Possibility of esophagitis not excluded. Mild splenomegaly.
[2018-01-06 15:24] VITALS: BP 135/81; PULSE 92; TEMP 97.8; O2SAT 96
--- NOTE | 2018-01-06 19:08 | CP.PCM.CON ---
History of Present Illness - History of Present Illness History of Present Illness: 47M with past medical history of IV drug abuse, consulted for right upper extremity cellulitis with possible abscess formation. Patient left against medical advice before he could be seen and evaluated. Past Patient History - Infectious Disease Hx of Infectious Diseases: None - Past Medical History & Family History Past Medical History?: Yes - Past Social History Smoking Status: Light Smoker < 10 Cigarettes Daily - CARDIAC Hx Cardiac Disorders: No - PULMONARY Hx Respiratory Disorders: No - NEUROLOGICAL Hx Seizures: Yes - HEENT Hx HEENT Problems: No - RENAL Hx Chronic Kidney Disease: No - ENDOCRINE/METABOLIC Hx Endocrine Disorders: No - HEMATOLOGICAL/ONCOLOGICAL Hx Hepatitis C: Yes - INTEGUMENTARY Hx Dermatological Problems: No - MUSCULOSKELETAL/RHEUMATOLOGICAL Hx Arthritis: Yes - GASTROINTESTINAL Hx Gastrointestinal Disorders: No - GENITOURINARY/GYNECOLOGICAL Hx Genitourinary Disorders: No - PSYCHIATRIC Hx Anxiety: Yes Hx Substance Use: Yes - SURGICAL HISTORY Hx Surgeries: Yes Hx Amputation: Yes (right hand, reattached) - ANESTHESIA Hx Anesthesia: Yes Hx Anesthesia Reactions: No Hx Malignant Hyperthermia: No Meds Allergies/Adverse Reactions: Allergies Allergy/AdvReac Type Severity Reaction Status Date / Time carbamazepine [From Tegretol] Allergy RASH Verified 12/17/17 15:40 phenytoin sodium Allergy RASH Verified 12/17/17 15:40 [From Dilantin] phenytoin sodium extended Allergy RASH Verified 12/17/17 15:40 [From Dilantin] Physical Exam - Constitutional Additional comments: No physical exam was obtained because patient left AMA Results - Vital Signs Recent Vital Signs: Last Vital Signs Temp 97.8 F 01/06/18 15:22 Pulse 92 H 01/06/18 15:22 Resp 20 01/06/18 15:22 BP 135/81 01/06/18 15:22 Pulse Ox 96 01/06/18 15:22 - Labs Result Diagrams: 01/06/18 08:11 01/06/18 08:11 Labs: Laboratory Results - last 24 hr 01/05/18 01/05/18 01/05/18 19:52 19:52 19:58 WBC 9.9 D RBC 4.82 Hgb 15.3 Hct 44.3 MCV 92.0 MCH 31.8 H MCHC 34.6 RDW 13.6 Plt Count 207 MPV 7.4 Neut % (Auto) 75.8 H Lymph % (Auto) 12.3 L [place] % (Auto) 11.4 H Eos % (Auto) 0.2 Baso % (Auto) 0.3 Neut # (Auto) 7.5 H Lymph # (Auto) 1.2 [place] # (Auto) 1.1 H Eos # (Auto) 0.0 Baso # (Auto) 0.0 PT INR APTT D-Dimer, Quantitative Sodium 141 Potassium 3.3 L Chloride 97 L Carbon Dioxide 25 Anion Gap 22 H BUN 21 H Creatinine 1.0 Est GFR ( Amer) > 60 Est GFR (Non-Af Amer) > 60 Random Glucose 139 H Calcium 9.5 Phosphorus Magnesium Total Bilirubin 0.7 AST 30 ALT 25 Alkaline Phosphatase 108 Total Protein 8.8 H Albumin 4.4 Globulin 4.4 H Albumin/Globulin Ratio 1.0 Urine Color Urine Clarity Urine pH Ur Specific [place] Urine Protein Urine Glucose (UA) Urine Ketones Urine Blood Urine Nitrate Urine Bilirubin Urine Urobilinogen Ur Leukocyte Esterase Urine WBC (Auto) Urine RBC (Auto) Ur Squamous Epith Cells Hyaline Casts Urine Opiates Screen Urine Methadone Screen Ur Barbiturates Screen Phenytoin < 3.0 L Ur Phencyclidine Scrn Ur Amphetamines Screen U Benzodiazepines Scrn U Oth Cocaine Metabols U Cannabinoids Screen Alcohol, Quantitative 16 H 01/05/1818 01/05/18 20:47 20:47 21:19 WBC RBC Hgb Hct MCV MCH MCHC RDW Plt Count MPV Neut % (Auto) Lymph % (Auto) [place] % (Auto) Eos % (Auto) Baso % (Auto) Neut # (Auto) Lymph # (Auto) [place] # (Auto) Eos # (Auto) Baso # (Auto) PT 13.6 H INR 1.2 APTT 34 D-Dimer, Quantitative 1017 H Sodium Potassium Chloride Carbon Dioxide Anion Gap BUN Creatinine Est GFR ( Amer) Est GFR (Non-Af Amer) Random Glucose Calcium Phosphorus Magnesium Total Bilirubin AST ALT Alkaline Phosphatase Total Protein Albumin Globulin Albumin/Globulin Ratio Urine Color [place] Urine Clarity Hazy Urine pH 5.0 Ur Specific [place] 1.030 Urine Protein 1+ H Urine Glucose (UA) Normal Urine Ketones Negative Urine Blood Negative Urine Nitrate Negative Urine Bilirubin Negative Urine Urobilinogen 4.0 Ur Leukocyte Esterase Neg Urine WBC (Auto) 3 Urine RBC (Auto) 4 H Ur Squamous Epith Cells < 1 Hyaline Casts 6-10 H Urine Opiates Screen Positive H Urine Methadone Screen Positive H Ur Barbiturates Screen Negative Phenytoin Ur Phencyclidine Scrn Negative Ur Amphetamines Screen Positive H U Benzodiazepines Scrn Positive U Oth Cocaine Metabols Positive H U Cannabinoids Screen Negative Alcohol, Quantitative 01/06/18 01/06/18 08:11 08:11 WBC 7.2 RBC 4.14 L Hgb 13.4 Hct 38.6 MCV 93.3 MCH 32.3 H MCHC 34.6 RDW 13.5 Plt Count 194 MPV 7.9 Neut % (Auto) 64.4 Lymph % (Auto) 19.8 L [place] % (Auto) 14.3 H Eos % (Auto) 1.0 Baso % (Auto) 0.5 Neut # (Auto) 4.6 Lymph # (Auto) 1.4 [place] # (Auto) 1.0 H Eos # (Auto) 0.1 Baso # (Auto) 0.0 PT INR APTT D-Dimer, Quantitative Sodium 138 Potassium 4.4 Chloride 98 Carbon Dioxide 29 Anion Gap 16 BUN 20 Creatinine 0.8 Est GFR ( Amer) > 60 Est GFR (Non-Af Amer) > 60 Random Glucose 109 Calcium 8.6 Phosphorus 3.9 Magnesium 2.4 H Total Bilirubin 0.5 AST 27 ALT 25 Alkaline Phosphatase 95 Total Protein 7.4 Albumin 3.9 Globulin 3.5 Albumin/Globulin Ratio 1.1 Urine Color Urine Clarity Urine pH Ur Specific [place] Urine Protein Urine Glucose (UA) Urine Ketones Urine Blood Urine Nitrate Urine Bilirubin Urine Urobilinogen Ur Leukocyte Esterase Urine WBC (Auto) Urine RBC (Auto) Ur Squamous Epith Cells Hyaline Casts Urine Opiates Screen Urine Methadone Screen Ur Barbiturates Screen Phenytoin Ur Phencyclidine Scrn Ur Amphetamines Screen U Benzodiazepines Scrn U Oth Cocaine Metabols U Cannabinoids Screen Alcohol, Quantitative Assessment & Plan - Assessment and Plan (Free Text) Assessment: Unable to obtain significant clinical findings because patient left Against Medical Advice
--- NOTE | 2018-01-07 00:47 | CP.PCM.DIS ---
Provider - Provider Date of Admission: 01/05/18 22:09 Attending physician: Angel Villeda MD Time Spent in preparation of Discharge (in minutes): 0 Hospital Course - Lab Results Lab Results: Micro Results 01/05/18 22:41 Blood Blood Culture - Preliminary NO GROWTH AFTER 24 HOURS 01/05/18 22:41 Blood Blood Culture - Preliminary NO GROWTH AFTER 24 HOURS Most Recent Lab Values WBC 7.2 K/uL (4.8-10.8) 01/06/18 08:11 RBC 4.14 Mil/uL (4.40-5.90) L 01/06/18 08:11 Hgb 13.4 g/dL (12.0-18.0) 01/06/18 08:11 Hct 38.6 % (35.0-51.0) 01/06/18 08:11 MCV 93.3 fL (80.0-94.0) 01/06/18 08:11 MCH 32.3 pg (27.0-31.0) H 01/06/18 08:11 MCHC 34.6 g/dL (33.0-37.0) 01/06/18 08:11 RDW 13.5 % (11.5-14.5) 01/06/18 08:11 Plt Count 194 K/uL (130-400) 01/06/18 08:11 MPV 7.9 fL (7.2-11.7) 01/06/18 08:11 Neut % (Auto) 64.4 % (50.0-75.0) 01/06/18 08:11 Lymph % (Auto) 19.8 % (20.0-40.0) L 01/06/18 08:11 Alfalfa % (Auto) 14.3 % (0.0-10.0) H 01/06/18 08:11 Eos % (Auto) 1.0 % (0.0-4.0) 01/06/18 08:11 Baso % (Auto) 0.5 % (0.0-2.0) 01/06/18 08:11 Neut # (Auto) 4.6 K/uL (1.8-7.0) 01/06/18 08:11 Lymph # (Auto) 1.4 K/uL (1.0-4.3) 01/06/18 08:11 Alfalfa # (Auto) 1.0 K/uL (0.0-0.8) H 01/06/18 08:11 Eos # (Auto) 0.1 K/uL (0.0-0.7) 01/06/18 08:11 Baso # (Auto) 0.0 K/uL (0.0-0.2) 01/06/18 08:11 PT 13.6 SECONDS (9.7-12.2) H 01/05/18 21:19 INR 1.2 01/05/18 21:19 APTT 34 SECONDS (21-34) 01/05/18 21:19 D-Dimer, Quantitative 1017 ng/mlDDU (0-243) H 01/05/18 21:19 Sodium 138 mmol/L (132-148) 01/06/18 08:11 Potassium 4.4 mmol/L (3.6-5.2) 01/06/18 08:11 Chloride 98 mmol/L (98-107) 01/06/18 08:11 Carbon Dioxide 29 mmol/L (22-30) 01/06/18 08:11 Anion Gap 16 (10-20) 01/06/18 08:11 BUN 20 mg/dL (9-20) 01/06/18 08:11 Creatinine 0.8 mg/dL (0.8-1.5) 01/06/18 08:11 Est GFR ( Amer) > 60 01/06/18 08:11 Est GFR (Non-Af Amer) > 60 01/06/18 08:11 Random Glucose 109 mg/dL (75-110) 01/06/18 08:11 Calcium 8.6 mg/dl (8.6-10.4) 01/06/18 08:11 Phosphorus 3.9 mg/dL (2.5-4.5) 01/06/18 08:11 Magnesium 2.4 mg/dL (1.6-2.3) H 01/06/18 08:11 Total Bilirubin 0.5 mg/dL (0.2-1.3) 01/06/18 08:11 AST 27 U/L (17-59) 01/06/18 08:11 ALT 25 U/L (21-72) 01/06/18 08:11 Alkaline Phosphatase 95 U/L (38-126) 01/06/18 08:11 Total Protein 7.4 g/dL (6.3-8.3) 01/06/18 08:11 Albumin 3.9 g/dL (3.5-5.0) 01/06/18 08:11 Globulin 3.5 gm/dL (2.2-3.9) 01/06/18 08:11 Albumin/Globulin Ratio 1.1 (1.0-2.1) 01/06/18 08:11 Urine Color Tiana (YELLOW) 01/05/18 20:47 Urine Clarity Hazy (Clear) 01/05/18 20:47 Urine pH 5.0 (5.0-8.0) 01/05/18 20:47 Ur Specific [place] 1.030 (1.003-1.030) 01/05/18 20:47 Urine Protein 1+ mg/dL (NEGATIVE) H 01/05/18 20:47 Urine Glucose (UA) Normal mg/dL (Normal) 01/05/18 20:47 Urine Ketones Negative mg/dL (NEGATIVE) 01/05/18 20:47 Urine Blood Negative (NEGATIVE) 01/05/18 20:47 Urine Nitrate Negative (NEGATIVE) 01/05/18 20:47 Urine Bilirubin Negative (NEGATIVE) 01/05/18 20:47 Urine Urobilinogen 4.0 mg/dL (0.2-1.0) 01/05/18 20:47 Ur Leukocyte Esterase Neg Stephanie/uL (Negative) 01/05/18 20:47 Urine WBC (Auto) 3 /hpf (0-5) 01/05/18 20:47 Urine RBC (Auto) 4 /hpf (0-3) H 01/05/18 20:47 Ur Squamous Epith Cells < 1 /hpf (0-5) 01/05/18 20:47 Hyaline Casts 6-10 /lpf (0-2) H 01/05/18 20:47 Urine Opiates Screen Positive (NEGATIVE) H 01/05/18 20:47 Urine Methadone Screen Positive (NEGATIVE) H 01/05/18 20:47 Ur Barbiturates Screen Negative (NEGATIVE) 01/05/18 20:47 Phenytoin < 3.0 ug/mL (10-20) L 01/05/18 19:58 Ur Phencyclidine Scrn Negative (NEGATIVE) 01/05/18 20:47 Ur Amphetamines Screen Positive (NEGATIVE) H 01/05/18 20:47 U Benzodiazepines Scrn Positive (NEGATIVE) 01/05/18 20:47 U Oth Cocaine Metabols Positive (NEGATIVE) H 01/05/18 20:47 U Cannabinoids Screen Negative (NEGATIVE) 01/05/18 20:47 Alcohol, Quantitative 16 mg/dl (0-10) H 01/05/18 19:52 - Hospital Course Hospital Course: On admission: This is a 47 year old male with PMHx of IVDA, Tobacco Use Disorder, and Alcohol Use Disorder who presents to the ED with right arm pain x 2 days. Patient is an active, chronic IV heroine user (~18 years), last use was 2 days ago in his right arm, medial aspect of bicep. Patient realized shortly after the area around the injection site became red, warm, painful to touch. He describes the pain is sharp in nature and constant. He denied taking anything for the pain. Reports not moving the right arm, makes the pain less. He was recently seen in the ED 12/17/17 for left arm abscess for which he was discharged with bactrim and cephalexin. He reports he usually shoots up in either arm, using clean needles. Admits to subjective fevers, cough, and shortness of breath; denied chills, chest pain, abdominal pain, n/v/d/c, or urinary symptoms. Hospital Course: Patient was admitted for R arm cellulitis. Patient was treated with Vancomycin 1g daily and Zosyn 3.375 Q6H while hospitalized. A CT of the RUE was obtained. CT RUE: There is infiltration of the subcutaneous soft tissues in the region just proximal to the antecubital fossa, about the cephalic vein. This may represent a thrombophlebitis. There is no defined fluid collection. This may reflect some phlegmonous change. There is mild cutaneous thickening overlying the region of concern. Likely cellulitis. (see full report) Patient's D-dimer was elevated and a CTA of the chest was obtained. CTA Chest: No evidence of central pulmonary embulus. Mild atelectasis. (see full report) Surgery was consulted, however patient decided to leave against medical advice prior to completion of surgical evaluation. Risks of leaving against medical advice and benefits of completing hospital course were explained to the patient. He expressed understanding of the risks, which include but are not limited to worsening of symptoms and developing life threatening complications. Patient signed an AMA form and left. Discharge Exam - Head Exam Head Exam: NORMAL INSPECTION, NORMOCEPHALIC Discharge Plan - Follow Up Plan Condition: GOOD Disposition: AGAINST MEDICAL ADVICE Instructions: Cellulitis (DC)
--- NOTE | 2018-01-07 00:58 | CP.PCM.PN ---
Subjective - Date & Time of Evaluation Date of Evaluation: 01/06/18 Time of Evaluation: 09:00 - Subjective Subjective: AMA note: On admission: This is a 47 year old male with PMHx of IVDA, Tobacco Use Disorder, and Alcohol Use Disorder who presents to the ED with right arm pain x 2 days. Patient is an active, chronic IV heroine user (~18 years), last use was 2 days ago in his right arm, medial aspect of bicep. Patient realized shortly after the area around the injection site became red, warm, painful to touch. He describes the pain is sharp in nature and constant. He denied taking anything for the pain. Reports not moving the right arm, makes the pain less. He was recently seen in the ED 12/17/17 for left arm abscess for which he was discharged with bactrim and cephalexin. He reports he usually shoots up in either arm, using clean needles. Admits to subjective fevers, cough, and shortness of breath; denied chills, chest pain, abdominal pain, n/v/d/c, or urinary symptoms. Hospital Course: Patient was admitted for R arm cellulitis. Patient was treated with Vancomycin 1g daily and Zosyn 3.375 Q6H while hospitalized. A CT of the RUE was obtained. CT RUE: There is infiltration of the subcutaneous soft tissues in the region just proximal to the antecubital fossa, about the cephalic vein. This may represent a thrombophlebitis. There is no defined fluid collection. This may reflect some phlegmonous change. There is mild cutaneous thickening overlying the region of concern. Likely cellulitis. (see full report) Patient's D-dimer was elevated and a CTA of the chest was obtained. CTA Chest: No evidence of central pulmonary embulus. Mild atelectasis. (see full report) Surgery was consulted, however patient decided to leave against medical advice prior to completion of surgical evaluation. Risks of leaving against medical advice and benefits of completing hospital course were explained to the patient. He expressed understanding of the risks, which include but are not limited to worsening of symptoms and developing life threatening complications. Patient signed an AMA form and left. Objective - Vital Signs/Intake and Output Vital Signs (last 24 hours): Temp Pulse Resp BP Pulse Ox 97.8 F 92 H 20 135/81 96 01/06/18 15:22 01/06/18 15:22 01/06/18 15:22 01/06/18 15:22 01/06/18 15:22 Intake and Output: 01/06/18 01/07/18 18:59 06:59 Intake Total 500 Balance 500 - Labs Labs: 01/06/18 08:11 01/06/18 08:11 PT 13.6 SECONDS (9.7-12.2) H 01/05/18 21:19 INR 1.2 01/05/18 21:19 APTT 34 SECONDS (21-34) 01/05/18 21:19
== END 2018-01-06 18:25 | disposition left against medical advice (07) | DRG 277 ==
LOC: C.ER 18:33 → C.9E 22:09 → C.5S 22:56
PROVIDERS: ADMIT Family Medicine; ATTEND Family Medicine
DX: L03.113 Cellulitis of right upper limb (principal); I80.8 Phlebitis and thrombophlebitis of other sites; J98.11 Atelectasis; F11.20 Opioid dependence, uncomplicated; F41.9 Anxiety disorder, unspecified; F10.10 Alcohol abuse, uncomplicated; Y90.0 Blood alcohol level of less than 20 mg/100 ml; Z86.19 Personal history of other infectious and parasitic diseases

== ENCOUNTER 2018-09-17 19:04 | Emergency (ER) | payer MEDICAID ==
[2018-09-17 19:05] VITALS: BMI 32.6
[2018-09-17 19:22] VITALS: BP 150/99; PULSE 101; RESP 16; TEMP 98.6; O2SAT 97
== END 2018-09-17 20:05 | disposition left against medical advice (07) ==
LOC: C.ER 19:04
DX: Z02.89 Encounter for other administrative examinations (principal); M25.571 Pain in right ankle and joints of right foot

== ENCOUNTER 2018-09-18 12:27 | Emergency (ER) | payer MEDICAID ==
[2018-09-18 12:37] VITALS: BMI 36.5
[2018-09-18 12:46] VITALS: TEMP 97.9
--- NOTE | 2018-09-18 14:47 | C.PDOC ---
History Of Present Illness 48 year old male presents to the ED complaining of insect bites over the past several weeks. Reports [facility] and believes he has been bitten and also notes increased itching. Denies any fever or chills. Also complains of right ankle injury status post slipping on ice 2-3 weeks ago. States he is able to ambulate but with pain. Denies weakness or numbness. Time Seen by Provider: 09/18/18 13:16 Chief Complaint (Nursing): Abnormal Skin Integrity History Per: Patient History/Exam Limitations: no limitations Onset/Duration Of Symptoms: Days Current Symptoms Are (Timing): Still Present Past Medical History Reviewed: Historical Data, Nursing Documentation, Vital Signs Vital Signs: Last Vital Signs Temp 97.9 F 09/18/18 12:37 Pulse 92 H 09/18/18 12:37 Resp 20 09/18/18 12:37 BP 141/97 H 09/18/18 12:37 Pulse Ox 95 09/18/18 12:37 - Medical History PMH: Anxiety, Arthritis, Back Problems, Seizures Denies: Chronic Kidney Disease Other Surgeries: Hx of surgeries Family History: States: No Known Family Hx - Social History Hx Alcohol Use: Yes Hx Substance Use: Yes - Immunization History Hx Tetanus Toxoid Vaccination: No Hx Influenza Vaccination: Yes Hx Pneumococcal Vaccination: No Review Of Systems Except As Marked, All Systems Reviewed And Found Negative. Constitutional: Negative for: Fever, Chills Cardiovascular: Negative for: Chest Pain Respiratory: Negative for: Shortness of Breath Gastrointestinal: Negative for: Nausea, Vomiting, Diarrhea Musculoskeletal: Positive for: Other (right ankle pain ) Skin: Positive for: Other (insect bites ) Neurological: Negative for: Weakness, Numbness Physical Exam - Physical Exam Appears: Non-toxic, No Acute Distress Skin: Warm, Dry, Other (scattered insect bites, red papules ) Head: Normacephalic Eye(s): bilateral: Normal Inspection, PERRL, EOMI Nose: Normal Oral Mucosa: Moist Throat: No Erythema, No Exudate Neck: Normal ROM, Supple Chest: Symmetrical Cardiovascular: Rhythm Regular, No Friction Rub, No Murmur Respiratory: Normal Breath Sounds, No Rales, No Rhonchi, No Wheezing Back: Normal Inspection, No Vertebral Tenderness, No Paraspinal Tenderness Extremity: Tenderness (mild tenderness to right ankle ), Capillary Refill (less than 2 sec to right ankle ), No Deformity, Swelling (mild swelling to right lateral ankle ) Extremity: Bilateral: Normal Color And Temperature, Normal ROM Pulses: Left Dorsalis Pedis: Normal, Right Dorsalis Pedis: Normal Neurological/Psych: Oriented x3, Normal Speech, Normal Motor, Normal Sensation Gait: Steady ED Course And Treatment O2 Sat by Pulse Oximetry: 95 (RA) Pulse Ox Interpretation: Normal Medical Decision Making Medical Decision Making: Plan - Benadryl 25mg PO - Prednisone 40mg PO - XR right ankle On reassessment, patient is resting comfortably, and is in no acute distress. Patient instructed to return to ED if symptoms worsen or persist. Patient ready and stable discharge. Disposition - Disposition Referrals: Hanna Nagel MD [Staff Provider] - Kim Euceda MD [Staff Provider] - Disposition: HOME/ ROUTINE Disposition Time: 14:45 Condition: UNKNOWN Additional Instructions: 77HE PATIENT HAS BED BUGS. MATTRESS, CLOTHES, TOWELS AND ALL LINEN MUST BE CLEANED OR CHANGED. 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 - Scribe Statement The provider has reviewed the documentation as recorded by the Gradyibjanneth Cotter All medical record entries made by the Scribjanneth were at my direction and personally dictated by me. I have reviewed the chart and agree that the record accurately reflects my personal performance of the history, physical exam, medical decision making, and the department course for this patient. I have also personally directed, reviewed, and agree with the discharge instructions and disposition.
[2018-09-18 15:00] VITALS: BP 131/82; PULSE 89; RESP 18
--- NOTE | 2018-09-18 16:34 | RAD ---
Date of service: 09/18/2018 PROCEDURE: Right Ankle Radiographs. HISTORY: ankle injury, pain COMPARISON: None available. TECHNIQUE: 3 views obtained. FINDINGS: BONES: Normal. No fracture. JOINTS: Normal. No osteoarthritis. Ankle mortise maintained. Talar dome intact SOFT TISSUES: Normal. OTHER FINDINGS: None. IMPRESSION: No evidence of acute fracture or dislocation.
[2018-09-18 21:23] VITALS: O2SAT 95
== END 2018-09-18 15:00 | disposition home or self-care (01) ==
LOC: C.ER 12:27
DX: S93.401A Sprain of unspecified ligament of right ankle, initial encounter (principal); W00.0XXA Fall on same level due to ice and snow, initial encounter; T14.8XXA Other injury of unspecified body region, initial encounter; W57.XXXA Bitten or stung by nonvenomous insect and other nonvenomous arthropods, initial encounter; Y92.89 Other specified places as the place of occurrence of the external cause